=== PATIENT | female | born 1960 | race Caucasian/White ===

== ENCOUNTER 2024-06-16 09:25 | Day surgery (SDC) | payer OTHER ==
[2024-06-08 15:59] VITALS: BMI 23.4
[~2024-06-16 09:25] MED LIST: ACETAMINOPHEN 325 MG TABLET (FP) PO PRN; CEFAZOLIN 1 GM in DEXTROSE 5%-WATER - 50 ML IVPB ONE
[2024-06-16 09:51] VITALS: RESP 20
[2024-06-16] MEDS ORDERED: BUPIVACAINE HCL/PF 0.25% (2.5MG/ML) 10 ML VIAL ONE (10:32)
[2024-06-16] MEDS ORDERED: DEXAMETHASONE SOD PHOSPHATE 4 MG/1 ML VIAL ONE ×2 (10:32→11:10)
[2024-06-16] MEDS ORDERED: LIDOCAINE HCL 2% (20ML MULTI-DOSE VIAL) ONE (10:32)
[2024-06-16] MEDS ORDERED: BUPIVACAINE HCL/PF 0.5% (5MG/ML) 10 ML VIAL ONE (11:09)
[2024-06-16] MEDS ORDERED: DEXAMETHASONE SOD PHOSPHATE 10 MG/1 ML VIAL ONE (11:10)
[2024-06-16] MEDS ORDERED: KETOROLAC TROMETHAMINE 30 MG/1 ML VIAL ONE ×2 (11:16→12:06)
[2024-06-16] MEDS ORDERED: PROPOFOL 20 ML ONE (11:16)
[2024-06-16] MEDS ORDERED: MIDAZOLAM HCL 2 MG/2 ML SINGLE DOSE VIAL ONE ×2 (11:17→12:04)
[2024-06-16] MEDS ORDERED: KETAMINE HCL 100 MG/ML - 5ML VIAL ONE (11:31)
[2024-06-16] MEDS ORDERED: ONDANSETRON 4 MG/2 ML VIAL IVPUSH PRN (12:06)
[2024-06-16] MEDS ORDERED: ACETAMINOPHEN 1000 MG/100 ML BAG IVPB PRN ×2 (12:07→12:31)
[2024-06-16] MEDS ORDERED: LACTATED RINGERS SOLUTION 1,000 ML IV SCH (12:15)
[2024-06-16 13:33] VITALS: TEMP 97.5
[2024-06-16 13:47] VITALS: BP 112/70; PULSE 64
== END 2024-06-16 13:20 | disposition home or self-care (01) ==
LOC: FASU 09:25
PROVIDERS: ATTEND Podiatrist
PROC: 01BG0ZZ Excision of Tibial Nerve, Open Approach (ICD-10-PCS; principal; 2024-06-16 11:45)
DX: G57.61 Lesion of plantar nerve, right lower limb (principal)
CPT/HCPCS: 88304-TC; J1100